=== PATIENT | male | born 2000 | race Native Hawaiian/Other Pacific Islander ===

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

== ENCOUNTER 2021-01-13 12:07 | Outpatient (CLI) | payer BC, OTHER | END 2021-01-13 19:38 | disposition home or self-care (01) | LOC: RESP 12:07 | PROVIDERS: ATTEND Registered Nurse | DX: R07.9 Chest pain, unspecified (principal) ==

== ENCOUNTER 2021-01-13 12:26 | Emergency (ER) | payer BC, OTHER ==
[~2021-01-13] VITALS: Ht 195.6 cm; Wt 91.2 kg
[2021-01-13 12:37] VITALS: TEMP 97.4
[2021-01-13 13:15] LABS: PLATELET COUNT 201 K/uL (142-355)
[2021-01-13 13:31] LABS: POTASSIUM 3.8 mmol/L (3.6-5.2); SODIUM 140 mmol/L (136-145)
[2021-01-13 14:27] VITALS: BP 118/78
== END 2021-01-13 14:27 | disposition home or self-care (01) ==
LOC: ED 12:26
PROVIDERS: Emergency Medicine Emergency Medical Services
DX: R07.89 Other chest pain (principal)
CPT/HCPCS: 80053; 83735; 84484; 85027; 85379; 85610; 93005; 96374; 99284; J1885